=== PATIENT | male | born 1995 | race Caucasian/White ===

== ENCOUNTER 2024-10-30 08:59 | Emergency (ER) | payer SELFPAY ==
[2024-10-30 09:08] VITALS: BP 140/80; PULSE 108; RESP 16; TEMP 36.6; O2SAT 95; BMI 3964.1
--- NOTE | 2024-10-30 09:09 | ECG_ITS ---
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 Measurements Intervals [place] Rate: 100 P: 78 VA: 124 QRS: 82 QRSD: 97 T: 77 QT: 313 QTc: 404 Interpretive Statements SINUS TACHYCARDIA No previous ECG available for comparison Electronically Signed On 11-01-2024 18:06:06 PLANT SCIENTIST by Alan Jewell M.D. [email or web address]
--- NOTE | 2024-10-30 09:14 | XR_ITS ---
WS: [id number] XR chest 1V portable [id number] REASON FOR EXAM: dyspnea/cough FINDINGS: The heart and mediastinum are within normal limits. Calcified granulomas disease bilaterally. No acute pulmonary parenchymal or pleural abnormality is identified. The bony thorax is intact without significant focal abnormality. XR/XR chest 1V portable [id number] IMPRESSION: No acute chest abnormality.
--- NOTE | 2024-10-30 09:35 | W.ED.ARRPALP ---
HPI - Arrhythmia/Palpitations General: Chief Complaint: Arrhythmia/Palpitations Stated Complaint: Pacemacker battery problems Time Seen by Provider: 10/30/24 09:14 History of Present Illness: 29-year-old male presents emergency room stating he needs a pacemaker battery check. He also states he has several implants in his brain and in his back. When asked him what they were for he says it was for a adrenal needle that was misdiagnosed. When asked him where on the body these implants were out he motions there were at least 4-6 in his brain and that there was one that was placed into his heart through his carotid on the left but does not leave any scars. He is states this was done to the hospital in [place]. He states he recently was at the hospital in [place] somewhere but was not admitted because this hospital was not able to deal with the brain interface for the implant that is in his head. He denies being on any medications. No reported homicidal or suicidal ideations. Related Data Home Medications ?Medication ?Instructions ?Recorded ?Confirmed No Known Home Medications 10/30/24 10/30/24 Review of Systems Const: Denies: fever(s) or chills Card: Denies: chest pain Resp: Denies: dyspnea GI: Denies: abdominal pain : Denies: dysuria, urinary frequency or urinary urgency Musc: Denies: neck pain or back pain Skin/Breast: Denies: rash [facility] ED PFSH: Medical History (Updated 11/01/24 @ 06:03 by Sabas Rodriguez DO) Patient denies significant medical history Physical Exam Const: COMMON NORMALS: no acute distress GENERAL APPEARANCE: cooperative and comfortable ORIENTATION/CONSCIOUSNESS: Yes awake HENMT: COMMON NORMALS: normocephalic, atraumatic and hearing grossly normal bilaterally HEAD & SCALP: normocephalic and atraumatic Resp: COMMON NORMALS: normal respiratory effort, No retractions, No use of accessory muscles and clear to auscultation bilaterally AUSCULTATION: clear to auscultation bilaterally Cardio: COMMON NORMALS: regular rate, regular rhythm and No murmurs present (Cardio) RATE: regular rate RHYTHM: regular rhythm GI: COMMON NORMALS: Soft to palpation and No hepatosplenomegaly present AUSCULTATION: Yes normoactive bowel sounds PALPATION: Yes Soft to palpation, No Tenderness to palpation present (GI), No Guarding due to palpation present (GI) and Yes No hepatosplenomegaly present Extremity: COMMON NORMALS: normal to inspection, capillary refill normal, no clubbing, cyanosis or edema, no calf tenderness and no pedal edema Skin: COMMON NORMALS: no rashes or lesions noted GENERAL SKIN EXAM: no rashes or lesions noted Course Vital Signs: Vital signs: Vital Signs Temperature 97.9 F 10/30/24 09:08 Pulse Rate 108 H 10/30/24 09:08 Respiratory Rate 16 10/30/24 09:08 Blood Pressure 140/80 10/30/24 09:08 Pulse Oximetry 95 10/30/24 09:08 Oxygen Delivery Me thod Room Air 10/30/24 09:08 MDM - Arrhythmia/Palpitations Medical Decision Making Patient has bizarre description of his complaints. He reports having several different implanted electronic devices in his body including a pacemaker he states he has another 1 in his back is 6 in his head. He states he needs his lithium batteries changed. He makes various comments about the chat being on an interfaces from an adrenal needle that was misdiagnosed. Most of the make any sense. However he is not acutely suicidal or homicidal. He lists a home address from [place]. I was concerned that he may be a psychiatric psychiatric patient who had stopped his medicine and wandered off. We made attempts to try to find out if he was the subject of a missing persons alert of any kind. Our global sales director reported to me that he could find no such information. The patient is delusional but he is not acutely psychotic and does not at this time present an immediate danger to himself or others. Unfortunately I do not have the grounds at this point to keep him on a 96-hour hold to evaluate further and he wishes to go. Offered the patient psychiatric evaluation he refuses. Prior to his discharge we did get x-rays of his chest and abdomen to confirm there are no implanted electronic devices. Lab Data I reviewed the patient's lab results. 10/30/24 10:46 10/30/24 10:46 Radiology Impressions Chest X-Ray 10/30/24 09:14 IMPRESSION: No acute chest abnormality. KUB X-Ray 10/30/24 09:39 IMPRESSION: No significant abnormality. No metallic foreign body or biomedical analytical scientist identified. Laboratory Results WBC 6.91 10^3/uL (3.29-11.43) 10/30/24 10:46 RBC 5.13 10^6/uL (3.85-5.65) 10/30/24 10:46 Hgb 16.50 g/dL (11.27-16.99) 10/30/24 10:46 Hct 47.8 % (37-53) 10/30/24 10:46 MCV 93.2 fl (82-101) 10/30/24 10:46 MCH 32.2 pg (27-33) 10/30/24 10:46 MCHC 34.5 g/dL (30-55) 10/30/24 10:46 RDW 12.6 % (12.1-15.1) 10/30/24 10:46 Plt Count 297 10^3/cmm (157-399) 10/30/24 10:46 MPV 9.5 fL (7.4-10.4) 10/30/24 10:46 Neut % (Auto) 61.3 % 10/30/24 10:46 Lymph % (Auto) 28.5 % 10/30/24 10:46 Swisher % (Auto) 6.4 % 10/30/24 10:46 Eos % (Auto) 2.5 % 10/30/24 10:46 Baso % (Auto) 0.7 % 10/30/24 10:46 Neut # (Auto) 4.24 10^3/uL (1.8-7.7) 10/30/24 10:46 Lymph # (Auto) 2.0 10^3/uL (0.8-4.8) 10/30/24 10:46 Swisher # (Auto) 0.4 10^3/uL (0.2-0.9) 10/30/24 10:46 Eos # (Auto) 0.2 10^3/uL (0.0-0.8) 10/30/24 10:46 Baso # (Auto) 0.1 10^3/uL (0.0-0.1) 10/30/24 10:46 Nucleated RBC % (auto) 0 % 10/30/24 10:46 Nucleated RBCs # 0.0 /100WBC 10/30/24 10:46 Sodium 141 mmol/L (136-145) 10/30/24 10:46 Potassium 4.4 mmol/L (3.5-5.1) 10/30/24 10:46 Chloride 103 mmol/L (98-107) 10/30/24 10:46 Carbon Dioxide 27 mmol/L (22-29) 10/30/24 10:46 Anion Gap 15.4 (5-19) 10/30/24 10:46 BUN 7 mg/dL (6-20) 10/30/24 10:46 Creatinine 0.7 mg/dL (0.7-1.2) 10/30/24 10:46 GFR Calculation 132.4 mL/min (90-130) H 10/30/24 10:46 Glucose 93 mg/dL (65-115) 10/30/24 10:46 Calculated Osmolality 290 mOsm/kg (285-295) 10/30/24 10:46 Calcium 9.5 mg/dL (8.5-10.5) 10/30/24 10:46 Total Bilirubin 0.6 mg/dL (0.15-1.2) 10/30/24 10:46 AST 27 U/L (0-40) 10/30/24 10:46 ALT 22 U/L (0-41) 10/30/24 10:46 Alkaline Phosphatase 136 U/L (40-130) H 10/30/24 10:46 Total Protein 7.2 g/dL (6.6-8.7) 10/30/24 10:46 Albumin 4.2 g/dL (3.5-5.2) 10/30/24 10:46 Globulin 3.0 g/dL (1.3-4.6) 10/30/24 10:46 All radiology interpretation(s) finalized by discharge Discharge Plan Discharge Patient Disposition: Home Clinical Impression: Delusional disorder, No problem, feared complaint unfounded Condition: Stable Prescriptions: No Action No Known Home Medications Discharge Orders: Discharge ED (Routine); Ordered 10/30/24 Ordered By: Sabas Rodriguez Discharge Diet: Usual diet Discharge Activity: Resume usual activity Patient Instructions: Opioid Safety, Pain Management Activity Restrictions/Additional Instructions: Thank you for choosing [facility] for your healthcare needs today. It is very important that you follow up as instructed or that you return to the Emergency Department should you have concerns or if your condition changes or worsens in any way. Print Language: Romanian Coding Level of Care Code ED Medical Technologist for Preston Cohen
--- NOTE | 2024-10-30 09:39 | XR_ITS ---
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 Normal bowel gas pattern. No organomegaly or mass. Lumbar spine and bony pelvis are unremarkable. No radiopaque foreign body is identified. XR/XR KUB portable [id number] IMPRESSION: No significant abnormality. No metallic foreign body or medical technologist clinical identified.
[2024-10-30 11:12] LABS: Basophils # 0.1 10^3/uL (0.0-0.1); Basophils % 0.7 %; Eosinophils # 0.2 10^3/uL (0.0-0.8); Eosinophils % 2.5 %; Hematocrit 47.8 % (37-53); Lymphocytes % 28.5 %; Mean Corpuscular HGB Conc 34.5 g/dL (30-55); Mean Corpuscular Hemoglobin 32.2 pg (27-33); Mean Corpuscular Volume 93.2 fl (82-101); Mean Platelet Volume 9.5 fL (7.4-10.4); Monocytes # 0.4 10^3/uL (0.2-0.9); Monocytes % 6.4 %; Neutrophils # 4.24 10^3/uL (1.8-7.7); Neutrophils % 61.3 %; Nucleated Red Blood Cells % 0 %; Platelet Count 297 10^3/cmm (157-399); Red Blood Count 5.13 10^6/uL (3.85-5.65); Red Cell Distribution Width 12.6 % (12.1-15.1); White Blood Count 6.91 10^3/uL (3.29-11.43)
[2024-10-30 11:31] LABS: Alanine Aminotransferase 22 U/L (0-41); Albumin Level 4.2 g/dL (3.5-5.2); Alkaline Phosphatase 136 U/L (40-130); Anion Gap 15.4 (5-19); Aspartate Amino Transferase 27 U/L (0-40); Blood Urea Nitrogen 7 mg/dL (6-20); Calcium 9.5 mg/dL (8.5-10.5); Carbon Dioxide 27 mmol/L (22-29); Chloride 103 mmol/L (98-107); Creatinine Clr Calc Pharmacy 200.9661; Glomerular Filtration Rate 132.4 mL/min (90-130); Glucose 93 mg/dL (65-115); Osmolality Calculated 290 mOsm/kg (285-295); Potassium 4.4 mmol/L (3.5-5.1); Sodium 141 mmol/L (136-145); Total Bilirubin 0.6 mg/dL (0.15-1.2); Total Protein 7.2 g/dL (6.6-8.7)
== END 2024-10-30 11:49 | disposition home or self-care (01) ==
PROVIDERS: Emergency Provider Family Medicine
DX: F22 Delusional disorders (principal); Z71.1 Person with feared health complaint in whom no diagnosis is made; Z95.0 Presence of cardiac pacemaker
CPT/HCPCS: 36415; 71045; 74018; 80053; 85025; 93005; 99285